=== PATIENT | female | born 1990 | race African-American/Black ===

== ENCOUNTER 2020-07-19 04:57 | Emergency (ER) | payer OTHER | END 2020-07-19 05:26 | disposition home or self-care (01) | LOC: CSHERS 04:57 | DX: G40.909 Epilepsy, unspecified, not intractable, without status epilepticus (principal) | CPT/HCPCS: 99281 ==

== ENCOUNTER 2022-06-10 08:46 | Day surgery (SDC) | payer OTHER ==
[2022-06-08 14:34] VITALS: BMI 44.2
[2022-06-09 09:54] LABS: Hemoglobin 11.5 g/dL (12.0-15.5); Mean Corpuscular HGB CONC 29.9 g/dL (32.0-36.0); Mean Corpuscular Hemoglobin 27.3 pg (27.0-33.0); Platelet Count 246 10x3/uL (150-450); RBC Distribution Width 14.1 % (11.5-14.5); Red Blood Cell (RBC) Count 4.22 10x6/uL (3.90-5.03); White Blood Cell (WBC) Count 7.4 10x3/uL (3.5-10.5)
[2022-06-09 10:27] LABS: BHCG - Serum Negative (NEGATIVE); Pregs Control Background? CLEAR/WHITE (CLR/WHITE); Pregs Control Bar Appear? YES (CONTROL BAR)
[2022-06-10] MEDS ORDERED: Midazolam HCl 2 mg/2 ml Vial ONE ×2 (10:54→12:03)
[2022-06-10] MEDS ORDERED: Scopolamine 1.5 mg/72 hour Patch ONE (10:54)
[2022-06-10] MEDS ORDERED: Famotidine/PF 20 mg/2ml Vial ONE (10:55)
[2022-06-10] MEDS ORDERED: PROPOFOL 20 ML ONE (12:03)
[2022-06-10] MEDS ORDERED: Fentanyl 100 MCG/2 ML VIAL ONE ×2 (12:04→13:16)
[2022-06-10] MEDS ORDERED: Ketorolac Tromethamine 30 MG/ML VIAL ONE (12:04)
[2022-06-10] MEDS ORDERED: Rocuronium Bromide 10 MG/ML (10ML VIAL) ONE (12:04)
[2022-06-10] MEDS ORDERED: Ondansetron PF 4 MG/2 ML Vial ONE (12:04)
[2022-06-10] MEDS ORDERED: Lidocaine 1% PF 5 ML VIAL ONE (12:04)
[2022-06-10] MEDS ORDERED: SUGAMMADEX SODIUM 200 MG/2 ML VIAL ONE (12:08)
[2022-06-10] MEDS ORDERED: CEFAZOLIN 2 GM VIAL ONE (12:16)
== END 2022-06-10 15:00 | disposition home or self-care (01) ==
LOC: CSHSDC 08:46
PROVIDERS: ATTEND Obstetrics & Gynecology
PROC: 0U598ZZ Destruction of Uterus, Via Natural or Artificial Opening Endoscopic (ICD-10-PCS; principal; 2022-06-10)
DX: N84.0 Polyp of corpus uteri (principal); D25.0 Submucous leiomyoma of uterus; G40.909 Epilepsy, unspecified, not intractable, without status epilepticus; E11.9 Type 2 diabetes mellitus without complications; N92.0 Excessive and frequent menstruation with regular cycle; Z79.84 Long term (current) use of oral hypoglycemic drugs; Z79.899 Other long term (current) drug therapy; Z88.5 Allergy status to narcotic agent
CPT/HCPCS: 84703; 85027; 86850; 86900; 86901; 88305; J1885; J2250; J2405; J2704; J3010; S0028